=== PATIENT | female | born 1965 | race Hispanic/Latino ===

== ENCOUNTER → 2018-08-13 | Day surgery (SDC) | payer BC ==
[2018-08-03 17:18] LABS: ANION GAP 11.6 mmol/L (8-16); BLOOD UREA NITROGEN 11 mg/dL (7-26); BUN/CREATININE RATIO 16 (6-25); CALCIUM 9.6 mg/dL (8.4-10.2); CARBON DIOXIDE 27 mmol/L (22-29); CHLORIDE 102 mmol/L (98-107); EST GLOMERULAR FILTRATION RATE > 60 ML/MIN (60-); GLUCOSE 81 mg/dL (74-118); POTASSIUM 3.6 mmol/L (3.5-5.1); SODIUM 137 mmol/L (136-145)
[~2018-08-13] MED LIST: ACETAMINOPHEN/CODEINE 300MG - 30MG TAB ONE; AMLODIPINE BESIL1 GM; AMLODIPINE BESYL5 MG PO; ATORVASTATIN CA20 MG PO; BUPIVACAINE HCL 0.5% INJ 30 ML VIAL INJ ONE; CEFAZOLIN SOD 1 GM/NS 50ML 50 ML IV ONE; FENTANYL CITRATE/PF 100MCG/2 ML INJ ONE; GABAPENTIN300 MG PO; GLIPIZIDE-METF1 EAC2 PO; LANTUS 3ML100 UNITS/ SC; LIDOCAINE HCL 2% LOCAL INJ 5 ML SDV VIAL INJ ONE; MIDAZOLAM HCL 2 MG/2 ML VIAL ONE; MUPIROCIN 2% OINT 22 GM TUBE ONE; ONDANSETRON HCL INJ 2MG/ML 2ML 2 MG/ML VIAL ONE; PROPOFOL IV EMULSION 10 MG/ML 20 ML VIAL ONE; SERTRALINE HCL50 MG PO; SEVOFLURANE INHAL SOLN 250 ML PEN BTL ONE
--- OUTSIDE RECORDS SUMMARY | 2018-08-13 05:40 | XMS REPORT ---
[facility] Address Unknown Phone Unavailable Care Team Providers Care Joint Setter Name Role Phone Unavailable Unavailable Payers Payer Name Policy Type Policy Number Effective Date Expiration Date Problems This patient has no known problems. Allergies, Adverse Reactions, Alerts Allergy Name Allergy Type Status Severity Reaction(s) Onset Date Inactive Date Treating Clinician Comments No Known Allergies DA Active U 2017-07-14 00:00:00 Medications This patient has no known medications.
--- OUTSIDE RECORDS SUMMARY | 2018-08-13 05:40 | XMS REPORT ---
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 Rusty Lira MD Special investigations and examinations - Gynecological examination Mixed incontinence 788.33 Active Rusty Lira MD Mixed incontinence (female) (male) Medication List Medication Instructions Start Date Stop Date Generic Name NDC Status Provider Patient Instruction AMLODIPINE BESYLATE 5 MG ORAL TABLET AMLODIPINE BESYLATE 63017609355 Active Rusty Lira MD Active ATORVASTATIN CALCIUM 40 MG ORAL TABLET ATORVASTATIN CALCIUM 07291592523 Active Rusty Lira MD Active GLIPIZIDE-METFORMIN HCL 5-500 MG ORAL TABLET GLIPIZIDE-METFORMIN HCL 27991253706 Active Rusty Lira MD Active OMEPRAZOLE 40 MG ORAL CAPSULE DELAYED RELEASE OMEPRAZOLE 19827473820 Active Rusty Lira MD Active OXYBUTYNIN CHLORIDE 5 MG ORAL TABLET OXYBUTYNIN CHLORIDE 52550527959 Active Rusty Lira MD Active LISINOPRIL 5 MG ORAL TABLET LISINOPRIL 70253093240 Active Rusty Lira MD Active SERTRALINE HCL 50 MG ORAL TABLET SERTRALINE HCL 09159041614 Active Rusty Lira MD Active Vital Signs Date Name Value Unit Range Description blood pressure, diastolic 83 mm[Hg] BP preston blood pressure, systolic 124 mm[Hg] BP sys height E&M 62 [in_us] Bdy height pulse rate E&M 71 /min Heart rate respiratory rate E&M 17 /min Resp rate temperature E&M 98.4 [degF] Body temperature weight E&M 162.80 [lb_av] Weight Measured Procedures Code Procedure Name Date Entry Date Standard Description CPT-84200 Est Patient Well Exam (40 - 64 Yrs) - 27360 08:38:09 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
[2018-08-13 09:33] VITALS: BP 129/66
--- NOTE | 2018-08-13 15:19 | Operative Report ---
DATE OF PROCEDURE: 08/13/2018 SURGEON: Dwight Otoole MD PREOPERATIVE DIAGNOSES: 1. Right carpal tunnel syndrome. 2. Stenosing tenosynovitis of right finger. POSTOPERATIVE DIAGNOSES: 1. Right carpal tunnel syndrome. 2. Flexor tenosynovitis, right wrist. PROCEDURES: 1. Right open carpal tunnel release. 2. Flexor tenosynovectomy, right wrist. 3. Tenovaginotomy of right finger. ANESTHESIA: General. HISTORY: The patient is a 52-year-old with EMG-proven right carpal tunnel syndrome with stenosing tenosynovitis of the right finger that is recalcitrant to conservative treatment. The risks, benefits and alternatives of treatment were discussed with the patient. The patient is prepared to undergo the procedure as outlined. DESCRIPTION OF PROCEDURE: The patient was brought to the operating theater. After the induction of adequate general inhalation anesthesia, the patient was prepped and draped in the supine position. A time out was performed by the entire operating room team. A 2.5 cm incision was marked out in the intrathenar space. The right upper extremity was exsanguinated, and a tourniquet was inflated to a pressure of 250 mmHg. The incision was made through the skin and subcutaneous tissues and all venous tributaries were controlled with bipolar cautery. The incision was deepened through the palmar fascia until the transverse carpal ligament was identified. The ligament was sharply sectioned, taking care to protect and preserve the median nerve underlying it. After the complete width of the ligament had been transected, the distal volar forearm fascia was divided under direct view. Proliferative flexor tenosynovium was noticed to encompass the median nerve and this was radically excised. After performing this maneuver, the nerve was noted to lie adequately decompressed. The wound was copiously irrigated with bacteriostatic saline, closed with 5-0 nylon in an interrupted horizontal mattress fashion. A Marcaine field block was performed at the operative site. Tourniquet was deflated. All of the fingers pinked up nicely and a sterile bulking conforming bandage was applied to the hand and the wrist. A fiberglass splint was fashioned to maintain the wrist in a modest amount of extension. This was held in place with a loosely wrapped Taco wrap. The patient tolerated the procedure well and was brought to the recovery room in satisfactory condition and discharged with a postoperative instruction sheet as well as a followup appointment. The patient was brought to the operating theater. After the induction of adequate general/regional anesthesia, the patient was prepped and draped in a supine position. A time out was performed by the entire operating room team. An oblique incision was marked out over the A1 igor of the right finger. The upper extremity was exsanguinated, and a tourniquet was inflated to a pressure of 250 mmHg. The incision was made through the skin and subcutaneous tissues. All venous tributaries were controlled with bipolar cautery. The incision was deepened through the palmar tissues. The neurovascular bundles on the radial and ulnar sides of the flexor tendon sheath were identified and retracted away from the flexor tendon sheath and preserved. The A1 igor of the affected finger was identified and incised longitudinally, taking care to protect and preserve the flexor tendons within the sheath. After the complete length of the igor had been transected, the tendons were placed in a range of motion. There was noted to be good motion without any locking. The wound was then copiously irrigated with bacteriostatic saline and closed with 5-0 nylon in an interrupted horizontal mattress fashion. A Marcaine field block was performed at the operative site. The tourniquet was deflated. All the fingers pinked up nicely. A sterile bulky conforming bandage was applied to the hand, and the patient was returned to the recovery room in satisfactory condition and was discharged with a postoperative instruction sheet as well as a followup appointment. MD CHANEL Minre/MARCUS /[id number]
== END | disposition home or self-care (01) ==
LOC: OR 05:39
PROVIDERS: ATTEND Plastic Surgery
DX: M65.311 Trigger thumb, right thumb (principal); G56.01 Carpal tunnel syndrome, right upper limb; M65.841 Other synovitis and tenosynovitis, right hand; I10 Essential (primary) hypertension; E11.9 Type 2 diabetes mellitus without complications; M54.9 Dorsalgia, unspecified; Z01.810 Encounter for preprocedural cardiovascular examination; Z01.812 Encounter for preprocedural laboratory examination; Z79.4 Long term (current) use of insulin
CPT/HCPCS: 25115; 26055; 36415 ×2; 80048; 82948; 93005; J0690; J2001; J2250; J2405; J2704

== ENCOUNTER → 2018-09-01 | Day surgery (SDC) | payer BC ==
[~2018-09-01] MED LIST changes: -ACETAMINOPHEN/CODEINE 300MG - 30MG TAB ONE; +KETOROLAC TROMETHAMINE 30 MG/ML VIAL ONE
--- OUTSIDE RECORDS SUMMARY | 2018-09-01 05:18 | XMS REPORT ---
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 Rusty Lira MD Special investigations and examinations - Gynecological examination Mixed incontinence 788.33 Active Rusty Lira MD Mixed incontinence (female) (male) Medication List Medication Instructions Start Date Stop Date Generic Name NDC Status Provider Patient Instruction AMLODIPINE BESYLATE 5 MG ORAL TABLET AMLODIPINE BESYLATE 26004231497 Active Rusty Lira MD Active ATORVASTATIN CALCIUM 40 MG ORAL TABLET ATORVASTATIN CALCIUM 21187612864 Active Rusty Lira MD Active GLIPIZIDE-METFORMIN HCL 5-500 MG ORAL TABLET GLIPIZIDE-METFORMIN HCL 67955345794 Active Rusty Lira MD Active OMEPRAZOLE 40 MG ORAL CAPSULE DELAYED RELEASE OMEPRAZOLE 41296020182 Active Rusty Lira MD Active OXYBUTYNIN CHLORIDE 5 MG ORAL TABLET OXYBUTYNIN CHLORIDE 01136826505 Active Rusty Lira MD Active LISINOPRIL 5 MG ORAL TABLET LISINOPRIL 66914088027 Active Rusty Lira MD Active SERTRALINE HCL 50 MG ORAL TABLET SERTRALINE HCL 36246277162 Active Rusty Lira MD Active Vital Signs [...] Procedure Name Date Entry Date Standard Description CPT-47642 Est Patient Well Exam (40 - 64 Yrs) - 16664 08:38:09 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
--- NOTE | 2018-09-01 07:10 | NUR ---
SPIRITUAL CARE - Pre-Surgery Assessment: Pt in bed. Pt's daughter at bedside. Pt reported supportive attention from family and friends. Intervention: I provided pastoral presence, hospitality, and sympathetic listening. I acquainted pt with availability of shirt finisher while hospitalized. Outcome: Pt expressed appreciation for visit. No need for follow up indicated at this time. [facility] Department O: [phone] Pager: [phone] ([phone] + number calling from)
[2018-09-01 08:45] VITALS: BP 117/66
--- NOTE | 2018-09-01 16:23 | Operative Report ---
DATE OF PROCEDURE: 09/01/2018 SURGEON: Dwight Otoloe MD PREOPERATIVE DIAGNOSIS: Stenosing tenosynovitis of left thumb finger. POSTOPERATIVE DIAGNOSIS: Stenosing tenosynovitis of left thumb finger. OPERATION PERFORMED: Tenovaginotomy of left thumb finger. ANESTHESIA: General. HISTORY: The patient is a 52-year-old left hand-dominant female who presents with stenosing tenosynovitis of the left thumb finger that is recalcitrant to conservative treatment. The risks, benefits, and alternatives of treatment were discussed with the patient and they are prepared to undergo the procedure as outlined. DESCRIPTION OF PROCEDURE: The patient was brought to the operating theater. After the induction of adequate general anesthesia, the patient was prepped and draped in a supine position. A time out was performed by the entire operating room team. An oblique incision was marked out over the A1 igor of the left thumb finger. The upper extremity was exsanguinated, and a tourniquet was inflated to a pressure of 250 mmHg. The incision was made through the skin and subcutaneous tissues. All venous tributaries were controlled with bipolar cautery. The incision was deepened through the palmar tissues. The neurovascular bundles on the radial and ulnar sides of the flexor tendon sheath were identified and retracted away from the flexor tendon sheath and preserved. The A1 igor of the affected finger was identified and incised longitudinally, taking care to protect and preserve the flexor tendons within the sheath. After the complete length of the igor had been transected, the tendons were placed in a range of motion. There was noted to be good motion without any locking. The wound was then copiously irrigated with bacteriostatic saline and closed with 5-0 nylon in an interrupted horizontal mattress fashion. A Marcaine field block was performed at the operative site. The tourniquet was deflated. All the fingers pinked up nicely. A sterile bulky conforming bandage was applied to the hand, and the patient was returned to the recovery room in satisfactory condition and was discharged with a postoperative instruction sheet as well as a followup appointment. Dwight Otoole MD ER/MODL /[id number]
== END | disposition home or self-care (01) ==
LOC: OR 05:16
PROVIDERS: ATTEND Plastic Surgery
DX: M65.312 Trigger thumb, left thumb (principal); M65.842 Other synovitis and tenosynovitis, left hand; I10 Essential (primary) hypertension; E11.9 Type 2 diabetes mellitus without complications; Z79.4 Long term (current) use of insulin
CPT/HCPCS: 26055; 36415; 82948; J0690; J1885; J2001; J2250; J2405; J2704